=== PATIENT | female | born 1985 | race Caucasian/White ===

== ENCOUNTER → 2017-07-06 | Outpatient (CLI) | payer BC ==
[2016-07-02 11:05] VITALS: BMI 50.0
[~2017-07-06] MED LIST: IBUP200C71 PO; LEVO100T95 PO; LOR5/325 PO
== END ==
LOC: LAB 12:16
PROVIDERS: ATTEND Obstetrics & Gynecology
DX: E03.9 Hypothyroidism, unspecified (principal)
CPT/HCPCS: 84443